=== PATIENT | male | born 1990 | race Caucasian/White ===

== ENCOUNTER 2018-06-27 07:32 | Emergency (ER) | payer BC, OTHER ==
[2018-06-27] MEDS ORDERED: Ketorolac 60 MG/2 ML SDV IM ONE (07:52)
[2018-06-27] MEDS ORDERED: traMADol 50 MG Tab PO ONE (08:34)
--- NOTE | 2018-06-27 09:16 | EDM.PDOC ---
ED HPI GENERAL MEDICAL PROBLEM - General Chief Complaint: Chest Pain Stated Complaint: CHEST PAIN Time Seen by Provider: 06/27/18 07:35 Source of Information: Reports: Patient History Limitations: Reports: No Limitations - History of Present Illness INITIAL COMMENTS - FREE TEXT/NARRATIVE: 27 y.o.student came this morning to the ed due to CP for 4 days when he take a deep breath. CP is located at his left ant chest wall. No trauma, no N/V/D or any other acute med. issues. 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 Social & Family History - Family History Family Medical History: Noncontributory - Tobacco Use Smoking Status *Q: Never Smoker Second Hand Smoke Exposure: No - Caffeine Use Caffeine Use: Reports: Coffee - Recreational Drug Use Recreational Drug Use: No ED ROS GENERAL - Review of Systems Review Of Systems: See Below Constitutional: Reports: No Symptoms HEENT: Reports: No Symptoms Respiratory: Reports: No Symptoms Cardiovascular: Reports: Chest Pain Endocrine: Reports: No Symptoms GI/Abdominal: Reports: No Symptoms : Reports: No Symptoms Musculoskeletal: Reports: Muscle Pain (ant chest wall) Skin: Reports: No Symptoms Neurological: Reports: No Symptoms Psychiatric: Reports: No Symptoms Hematologic/Lymphatic: Reports: No Symptoms Immunologic: Reports: No Symptoms ED EXAM, GENERAL - Physical Exam Exam: See Below Exam Limited By: No Limitations General Appearance: Alert, WD/WN, Mild Distress Eye Exam: Bilateral Eye: Normal Inspection Ears: Normal External Exam, Normal Canal, Hearing Grossly Normal Ear Exam: Bilateral Ear: Auricle Normal Nose: Normal Inspection, Normal Mucosa, No Blood Throat/Mouth: Normal Inspection, Normal Lips, Normal Teeth, Normal Gums, Normal Voice, No Airway Compromise Head: Atraumatic, Normocephalic Neck: Normal Inspection, Supple, Non-Tender Respiratory/Chest: No Respiratory Distress Cardiovascular: Normal Peripheral Pulses Peripheral Pulses: 2+: Carotid (R) GI/Abdominal: Normal Bowel Sounds, Soft, Non-Tender, No Organomegaly, No Abnormal Bruit, No Mass, Pelvis Stable (Male) Exam: Deferred Rectal (Males) Exam: Deferred Back Exam: Normal Inspection, Full Range of Motion Extremities: Normal Inspection, Normal Range of Motion, Non-Tender, No Pedal Edema, Normal Capillary Refill Neurological: Alert, Oriented, CN II-XII Intact, Normal Cognition, Normal Gait, No Motor/Sensory Deficits Psychiatric: Normal Affect, Normal Mood Skin Exam: Warm, Dry, Intact, Normal Color, No Rash Lymphatic: No Adenopathy EKG INTERPRETATION EKG Date: 06/27/18 Time: 07:40 Rhythm: NSR Rate (Beats/Min): 79 [place]: Normal P-Wave: Present QRS: Normal ST-T: Normal QT: Normal Comparison: NA - No Prior EKG Course - Vital Signs Text/Narrative:: 27 y.o.student came this morning to the ed due to CP for 4 days when he take a deep breath. CP is located at his left ant chest wall. No trauma, no N/V/D or any other acute med. issues. BP 155/81 RR 18 Pulse ox 98% on RA Temp 36.8 Pulse 86\ PE: WNWD W M with ant chest wall pain Labs: CBC, BMP Troponin Nl Imaging: CXR: NL Impression: Pleurisy Tx: Toradol REExam: Improved Plan: D/C with instructions Last Recorded V/S: Last Vital Signs Temp 36.8 C 06/27/18 09:20 Pulse 70 06/27/18 09:20 Resp 16 06/27/18 09:20 BP 138/68 06/27/18 09:20 Pulse Ox 100 06/27/18 09:20 - Orders/Labs/Meds Orders: Active Orders 24 hr Category Date Time Status EKG Documentation Completion [RC] ASDIRECTED Care 06/27/18 07:34 Active EKG 12 Lead [EK] Routine Ther 06/27/18 07:34 Ordered Labs: Laboratory Tests 06/27/18 06/27/18 06/27/18 Range/Units 07:55 07:55 07:55 WBC 9.8 (4.5-12.0) X10-3/uL RBC 5.17 (4.30-5.75) x10(6)uL Hgb 15.2 (11.5-15.5) g/dL Hct 45.4 (30.0-51.3) % MCV 87.8 (80-96) fL MCH 29.4 (27.7-33.6) pg MCHC 33.5 (32.2-35.4) g/dL RDW 11.8 (11.5-15.5) % Plt Count 311 (125-369) X10(3)uL MPV 8.2 (7.4-10.4) fL Neut % (Auto) 71.2 (46-82) % Lymph % (Auto) 15.4 (13-37) % [place] % (Auto) 12.1 H (4-12) % Eos % (Auto) 1 (1.0-5.0) % Baso % (Auto) 1 (0-2) % Neut # (Auto) 7.0 (1.6-8.3) # Lymph # (Auto) 1.5 (0.6-5.0) # [place] # (Auto) 1.2 (0.0-1.3) # Eos # (Auto) 0.0 (0.0-0.8) # Baso # (Auto) 0.1 (0.0-0.2) # D-Dimer, Quantitative (0.0-0.59) mg/LFEU Sodium 143 (135-145) mmol/L Potassium 4.2 (3.5-5.3) mmol/L Chloride 103 (100-110) mmol/L Carbon Dioxide 30 (21-32) mmol/L BUN 16 (7-18) mg/dL Creatinine 1.2 (0.70-1.30) mg/dL Est Cr Clr Drug Dosing 96.60 mL/min Estimated GFR (MDRD) > 60 (>60) BUN/Creatinine Ratio 13.3 (9-20) Glucose 97 (80-116) mg/dL Calcium 9.4 (8.6-10.2) mg/dL Magnesium 1.8 (1.8-2.5) mg/dL Troponin I < 0.017 L (<0.017-0.056) ng/mL Monoscreen (NEGATIVE) 06/27/18 06/27/18 Range/Units 07:55 07:55 WBC (4.5-12.0) X10-3/uL RBC (4.30-5.75) x10(6)uL Hgb (11.5-15.5) g/dL Hct (30.0-51.3) % MCV (80-96) fL MCH (27.7-33.6) pg MCHC (32.2-35.4) g/dL RDW (11.5-15.5) % Plt Count (125-369) X10(3)uL MPV (7.4-10.4) fL Neut % (Auto) (46-82) % Lymph % (Auto) (13-37) % [place] % (Auto) (4-12) % Eos % (Auto) (1.0-5.0) % Baso % (Auto) (0-2) % Neut # (Auto) (1.6-8.3) # Lymph # (Auto) (0.6-5.0) # [place] # (Auto) (0.0-1.3) # Eos # (Auto) (0.0-0.8) # Baso # (Auto) (0.0-0.2) # D-Dimer, Quantitative 0.22 (0.0-0.59) mg/LFEU Sodium (135-145) mmol/L Potassium (3.5-5.3) mmol/L Chloride (100-110) mmol/L Carbon Dioxide (21-32) mmol/L BUN (7-18) mg/dL Creatinine (0.70-1.30) mg/dL Est Cr Clr Drug Dosing mL/min Estimated GFR (MDRD) (>60) BUN/Creatinine Ratio (9-20) Glucose (80-116) mg/dL Calcium (8.6-10.2) mg/dL Magnesium (1.8-2.5) mg/dL Troponin I (<0.017-0.056) ng/mL Monoscreen Negative (NEGATIVE) Meds: Medications Discontinued Medications Generic Name Dose Route Start Last Admin Trade Name Hung PRN Reason Stop Dose Admin Ketorolac Tromethamine 60 mg 06/27/18 07:52 06/27/18 07:56 Toradol IM 06/27/18 07:53 60 mg ONETIME ONE Administration Tramadol HCl 100 mg 06/27/18 08:34 06/27/18 08:41 Ultram PO 06/27/18 08:35 Not Given ONETIME ONE Departure - Departure Time of Disposition: 09:15 Disposition: Home, Self-Care 01 Condition: Good Clinical Impression: Pleurisy without effusion Instructions: Pleurisy, [id number] Referrals: PCP,None [Primary Care Provider] - Forms: ED Department Discharge Additional Instructions: Ice, motrin for pain, f/u, come back if your symptoms get worse acutely - My Orders Last 24 Hours: My Active Orders 06/27/18 07:34 EKG Documentation Completion [RC] ASDIRECTED EKG 12 Lead [EK] Routine - Assessment/Plan Last 24 Hours: My Active Orders 06/27/18 07:34 EKG Documentation Completion [RC] ASDIRECTED EKG 12 Lead [EK] Routine
--- NOTE | 2018-06-27 10:06 | CR ---
INDICATION: Left sided chest pain since yesterday. CHEST: PA and lateral views of the chest revealed the heart, mediastinum and bony thorax to be unremarkable. Overlying EKG leads noted. Very minimal heavy markings are noted in the mid to lower lung murray which could be on the basis of minimal pulmonary fibrosis possibly due to previous bouts of pneumonia. At the left posterior sulcus there is blunting and a tiny amount of infiltrate which could represent fibrosis or possibly minimal pneumonia and pleuritis. This should be correlated clinically. No consolidating pneumonia or effusion of significant size could be identified. IMPRESSION: 1. Minimal pneumonia and pleuritis may be present at the posterior sulcus on the left-correlate clinically. 2. Minimal pulmonary fibrosis may be present. Report was called to Dr. Hanna at 0920 hours. [facility]
[2018-06-27 10:47] VITALS: BP 138/68
== END 2018-06-27 09:45 | disposition home or self-care (01) ==
LOC: FB.ED 07:32
DX: R09.1 Pleurisy (principal)
CPT/HCPCS: 36415; 71046; 80048; 83735; 84484; 85025; 85379; 86308; 93005; 96372; 99285; J1885